=== PATIENT | female | born 1975 | race Caucasian/White ===

== ENCOUNTER → 2017-10-15 11:56 | Outpatient (CLI) | payer MEDICAID, SELFPAY ==
--- NOTE | 2017-10-15 12:02 | XR_ITS ---
XR ankle RT min 3V HISTORY: Right ankle pain following injury ITS.REASON: RT FOOT PAIN ORDERING PHYSICIAN: Denise Sparks PATIENT AGE: 42 years COMPARISON: FINDINGS: No fracture or dislocation. No lytic or blastic change. There is normal mineralization.. The joint spaces are well-preserved. No significant degenerative/arthritic changes. No erosive changes evident. IMPRESSION: Negative ankle, no acute finding
--- NOTE | 2017-10-15 12:02 | XR_ITS ---
Right Foot 3 Views HISTORY: ITS.REASON: RT FOOT PAIN ORDERING PHYSICIAN: Denise Sparks PATIENT AGE: 42 years COMPARISON: None FINDINGS: No fracture or dislocation. No lytic or blastic change. There is normal mineralization.. The joint spaces are well-preserved. No significant degenerative/arthritic changes. No erosive changes evident. 7 mm calcaneal spur is present. IMPRESSION: No acute finding
== END ==
PROVIDERS: PCP Family Medicine; Visit Provider Nurse Practitioner Family
DX: M79.671 Pain in right foot (principal)
CPT/HCPCS: 73610; 73630

== ENCOUNTER → 2020-06-23 14:44 | Outpatient (CLI) | payer OTHER, SELFPAY | PROVIDERS: Visit Provider Nurse Practitioner | DX: L60.0 Ingrowing nail (principal) | CPT/HCPCS: 87070; 87077; 87186; 87205 ==

== ENCOUNTER → 2020-07-07 10:13 | Outpatient (CLI) | payer OTHER, SELFPAY ==
[2020-07-07 11:31] LABS: Basophils # 0.1 K/mm3 (0-0.2); Eosinophils # 0.5 K/mm3 (0.0-0.4); Eosinophils % 4.5 % (0.1-12.0); Hematocrit 48.3 % (37.0-47.0); Lymphocytes # 1.7 K/mm3 (0.7-4.5); Lymphocytes % 15.8 % (10-50); Mean Corpuscular HGB Conc 33.2 g/dL (31.8-35.4); Mean Corpuscular Hemoglobin 31.4 pg (27.0-31.2); Mean Corpuscular Volume 94.8 fl (81-99); Mean Platelet Volume 8.7 fl (7.4-10.4); Monocytes # 0.5 K/mm3 (0.1-1.0); Monocytes % 4.2 % (1.7-9.3); Neutrophils % 74.5 % (37.0-80.0); Platelet Count 299 K/mm3 (142-424); Red Blood Count 5.09 M/mm3 (4.20-5.40); Red Cell Distribution Width 14.2 % (11.5-17.5); White Blood Count 10.7 K/mm3 (4.8-10.8)
[2020-07-07 11:54] LABS: Alanine Aminotransferase 44 U/L (12-78); Albumin Level 4.4 g/dl (3.5-5.0); Albumin/Globulin Ratio 1.2 (1.1-1.8); Alkaline Phosphatase 126 U/L (38-126); Anion Gap 14.4 mEq/L (5-15); Aspartate Amino Transferase 40 U/L (14-36); Bilirubin,Total 0.5 mg/dl (0.2-1.3); Blood Urea Nitrogen 6 mg/dl (7-17); Calcium 9.6 mg/dl (8.4-10.2); Carbon Dioxide 25 mmol/L (22.0-30.0); Chloride 102 mmol/L (98-107); Chol/HDL Ratio 3.6 (1-3.5); Cholesterol 161 mg/dl (140-200); Estimated Glomerular Filt Rate 108 ml/min (>60); GFR (African American) 131 ML/MIN (>60); Globulin 3.7 g/dL (1.3-3.2); Glucose 244 mg/dl (74-100); HDL Cholesterol 45 mg/dl (40-60); Potassium 4.4 mmoL/L (3.5-5.1); Sodium 137 mmol/L (136-145); Total Protein,Serum 8.1 g/dl (6.3-8.2); Triglycerides 168 mg/dl (30-150); VLDL Cholesterol 34 mg/dL (0-40)
[2020-07-07 12:05] LABS: Direct LDL Cholesterol 75.85 mg/dL (100-129)
[2020-07-07 12:27] LABS: Hemoglobin A1C 8.7 % (4.0-6.0)
== END ==
PROVIDERS: PCP Family Medicine; Visit Provider Nurse Practitioner Family
DX: Z03.818 Encounter for observation for suspected exposure to other biological agents ruled out (principal); E11.9 Type 2 diabetes mellitus without complications; Z79.84 Long term (current) use of oral hypoglycemic drugs
CPT/HCPCS: 36415; 80053; 80061; 83036; 85025; U0003

== ENCOUNTER → 2020-09-06 14:17 | Outpatient (CLI) | payer OTHER, SELFPAY ==
--- NOTE | 2020-09-06 14:17 | US_ITS ---
PROCEDURE: US TRANSVAGINAL CLINICAL INDICATION: US T/V- DUB COMPARISON: No exams were available for comparison FINDINGS: UTERUS: 9cm x 5cmx 5cm with a combined endometrial thickness of 11.4mm LEFT OVARY: [id number] with a volume of 6.3ml. RIGHT OVARY: [id number] with a volume of 8.2ml. The uterus is upper limits of normal in size in the endometrium is also upper limits of normal at 11 mm. There are small bilateral ovarian cysts with no cul-de-sac fluid apparent. IMPRESSION: Endometrial thickness upper limits of normal at 11 mm. Dictated by: Lincoln Taveras MD 09/08/2020 12:56 Lincoln Taveras MD in [place] 09/08/2020 12:56
== END ==
PROVIDERS: PCP Obstetrics & Gynecology; Visit Provider Obstetrics & Gynecology
DX: N93.8 Other specified abnormal uterine and vaginal bleeding (principal)
CPT/HCPCS: 76830

== ENCOUNTER → 2021-01-18 14:44 | Outpatient (CLI) | payer OTHER, SELFPAY ==
--- NOTE | 2021-01-18 14:47 | XR_ITS ---
PROCEDURE: XR FOOT WT BEARING RT 3V CLINICAL INDICATION: pain COMPARISON: DX [id number] XR foot RT min 3V from 10/15/2017 FINDINGS: No acute fractures or dislocations. Bone density is normal. The tarsals, metatarsals and phalanges are unremarkable. Calcaneal spur is noted. No significant soft tissue abnormality. IMPRESSION: No acute findings. Dictated by: Darcie Chandra 01/18/2021 16:22 Darcie Chandra in [place] 01/18/2021 16:22
--- NOTE | 2021-01-18 14:47 | XR_ITS ---
PROCEDURE: XR FOOT WT BEARING LT 3V CLINICAL INDICATION: pain COMPARISON: DX [id number] XR foot RT min 3V from 10/15/2017 CR XR FOOT WT BEARING RT 3V from 01/18/2021 FINDINGS: No acute fractures or dislocations. Normal mineralization is noted. The visualized tarsals, metatarsals and phalanges are unremarkable. No significant erosive changes are noted. Calcaneal spur is noted. Minor soft tissue swelling on the dorsum of the foot. IMPRESSION: No acute findings. Dictated by: Darcie Chandra 01/18/2021 16:23 Darcie Chandra in [place] 01/18/2021 16:23
== END ==
PROVIDERS: PCP Family Medicine; Visit Provider Podiatrist
DX: M79.672 Pain in left foot (principal); M79.671 Pain in right foot
CPT/HCPCS: 73630

== ENCOUNTER → 2021-03-14 15:18 | Outpatient (CLI) | payer OTHER, SELFPAY ==
--- NOTE | 2021-03-14 15:21 | XR_ITS ---
PROCEDURE: XR KNEE RT 3V CLINICAL INDICATION: RT KNEE PAIN, UNSPECIFIED CHRONICITY COMPARISON: CR KNEE3L KNEE-3 VIEWS-LT from 03/02/2015 FINDINGS: Mild osteoarthritic changes are present involving the medial compartment and patellofemoral joint with osteophytes along the medial compartment and patellofemoral joint. A 17 mm calcific density is present 3 cm cephalad to the patella Other findings:None. IMPRESSION: Osteoarthritic change. 17 mm calcific density cephalad to the patella. This may be due to a loose body in the superior suprapatellar bursa. Dictated by: Lincoln Taveras MD 03/14/2021 16:14 Lincoln Taveras MD in [place] 03/14/2021 16:14
--- NOTE | 2021-03-14 15:21 | XR_ITS ---
PROCEDURE: XR KNEE LT 3V CLINICAL INDICATION: LT KNEE PAIN, UNSPECIFIED CHRONICITY COMPARISON: CR KNEE3L KNEE-3 VIEWS-LT from 03/02/2015 FINDINGS: No fracture or dislocation. No lytic or blastic change. There is normal mineralization. There are mild osteoarthritic changes involving all 3 compartments. This has progressed since the previous exam. Other findings:None. IMPRESSION: Progression of mild osteoarthritic changes Dictated by: Lincoln Taveras MD 03/14/2021 16:30 Lincoln Taveras MD in [place] 03/14/2021 16:30
== END ==
LOC: RAD 15:18 → COVID.OUT 15:23 → RAD 15:23
PROVIDERS: PCP Family Medicine; Visit Provider Family Medicine
DX: M25.562 Pain in left knee (principal); M25.561 Pain in right knee
CPT/HCPCS: 73562

== ENCOUNTER → 2021-06-01 09:27 | Outpatient (CLI) | payer OTHER, SELFPAY ==
--- NOTE | 2021-06-01 09:30 | XR_ITS ---
PROCEDURE INFORMATION: Exam: XR Left Knee Exam date and time: 06/01/2021 9:30 AM Age: 46 years old Clinical indication: Pain; Knee; Left; Additional info: Bl knee pain TECHNIQUE: Imaging protocol: XR Left knee. Views: 4 or more views. Total images: 4 COMPARISON: CR XR KNEE LT 3V 03/14/2021 3:36 PM FINDINGS: Bones/joints: No fractures. Moderate osteoarthritic changes in the patellofemoral compartment, predominantly laterally. Mild medial joint line spurring with minimal medial compartment osteoarthritic joint space narrowing. 10 mm intra-articular ossific body versus meniscal ossicle in the posterior aspect of the lateral tibiofemoral compartment unchanged. No gross joint effusion. Soft tissues: No soft tissue abnormalities. IMPRESSION: 1. No fracture. 2. Moderate osteoarthritic changes in the patellofemoral compartment, predominantly laterally. Minor osteoarthritic joint space narrowing and marginal spurring in the medial tibiofemoral compartment. 3. 10 mm intra-articular ossific body versus meniscal ossicle in the posterior aspect of the lateral compartment.
--- NOTE | 2021-06-01 09:30 | XR_ITS ---
PROCEDURE INFORMATION: Exam: XR Right Knee Exam date and time: 06/01/2021 9:30 AM Age: 46 years old Clinical indication: Pain; Knee; Right; Additional info: Bl knee pain TECHNIQUE: Imaging protocol: XR Right knee. Views: 4 or more views. Total images: 4 COMPARISON: CR XR KNEE RT 3V 03/14/2021 3:36 PM FINDINGS: Bones/joints: No fracture. Moderate osteoarthritis in the patellofemoral compartment, predominantly laterally. Moderate osteoarthritic joint space narrowing in the lateral tibiofemoral compartment. Chronic 17 x 8 mm ossification in the anterolateral suprapatellar soft tissues adjacent to the anterior femoral margin about 3.5 cm above the patella, which is unchanged from 03/14/2021. It might represent a large intra-articular ossific body in the proximal most suprapatellar bursa as previously suggested, or possibly chronic myositis ossificans. No adjacent bony changes or soft tissue mass component is evident to suggest neoplasm, although consider nonemergent MRI assessment if the patient is focally symptomatic at this site. Soft tissues: See Bones/joints finding. IMPRESSION: 1. No acute findings. 2. Moderate osteoarthritic changes predominantly in the patellofemoral compartment and lateral compartment. 3. Unchanged 17 mm ossification about 3.5 cm proximal to the patella probably representing an ossific body in the proximal most suprapatellar bursa versus myositis ossificans. No aggressive features suggestive of neoplasm were evident although consider nonemergent MRI assessment if the patient is focally symptomatic at this site.
== END ==
PROVIDERS: PCP Family Medicine; Visit Provider Orthopaedic Surgery
DX: M25.561 Pain in right knee (principal); M25.562 Pain in left knee
CPT/HCPCS: 73564

== ENCOUNTER → 2022-07-05 14:37 | Outpatient (CLI) | payer OTHER, SELFPAY ==
--- NOTE | 2022-07-05 14:40 | XR_ITS ---
FINAL REPORT CLINICAL HISTORY: PAIN FINDINGS: LEFT SHOULDER 3 views of the left shoulder were obtained. There is no acute fracture or dislocation. The joint spaces are intact. There is no soft tissue abnormality. IMPRESSION: No acute bony abnormality. Reviewed, Interpreted and Dictated by Daniella Wilson MD Transcribed by Riddhi Ko Authenticated and . [facility]
== END ==
PROVIDERS: PCP Physician Assistant; Visit Provider Physician Assistant
DX: M25.512 Pain in left shoulder (principal)
CPT/HCPCS: 73030

== ENCOUNTER → 2022-07-19 14:14 | Outpatient (CLI) | payer OTHER, SELFPAY ==
--- NOTE | 2022-07-19 14:19 | MR_ITS ---
FINAL REPORT TECHNIQUE: Multiplanar and multisequence imaging of the shoulder was obtained without contrast. CLINICAL HISTORY: LEFT SHOULDER PAIN, UNSPECIFIED CHRONICITY FINDINGS: Bones/Joint: Bone marrow signal intensity is normal. There is no fracture, edema, or pathologic marrow replacement. There is mild AC joint degenerative disease. Rotator Cuff: There is no full thickness rotator cuff tear. There is no fatty atrophy of the rotator cuff musculature. Labrum: No labral tear is identified. The biceps labral complex is intact. There is edema in the axillary recess with thickening of the inferior glenohumeral ligament most consistent with adhesive capsulitis. Other: The more distal biceps tendon is located within the bicipital groove. There is no joint effusion. Remaining soft tissues are within normal limits. IMPRESSION: Mild AC joint degenerative disease. Findings most consistent with adhesive capsulitis. Reviewed, Interpreted and Dictated by Ruthie Mccullough MD Transcribed by Denise Cr Authenticated and [facility]
== END ==
PROVIDERS: PCP Family Medicine; Visit Provider Physician Assistant
DX: M25.512 Pain in left shoulder (principal)
CPT/HCPCS: 73221

== ENCOUNTER 2022-09-06 14:00 | Outpatient (RCR) | payer OTHER, SELFPAY ==
--- NOTE | 2022-07-25 14:48 | HMH.OTOPEV ---
OT Inpatient Evaluation Rehab OT Outpatient Eval Start: 07/25/22 14:25 Freq: Status: Active Protocol: Document 07/25/22 14:25 KATALINA (Rec: 07/25/22 14:48 [id number] E-signed By Mario Alberto Santos, OT Outpatient Therapy Subjective History Subjective History Pt was seen this date for an initial therapy evaluation due to L shoulder pain. Pt reports she injured L shoulder ~ 6 months ago when reaching back to grab a purse in the car. Pt reports that she has had an MRI at 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 She reports that she has an appointment set for 08/04/22 to see the ortho regarding L UE. Pt reports that her pain intermittent based on the activity she is performing. She reports that this injury has affected all ADLs and IADLs. Pt does demonstrate with significant decline in AROM and strength at L shoulder. Chief Complaint Pain,Stiff,Weakness Symptom Type Throb Symptoms Relieved By Nothing Symptoms Aggravated By Physical Activity,Lifting Prior Functional Limitations None Current Functional Limitations Reaching,Lifting,Housework, Dressing,Driving,Sleeping Symptom Description Intermittent,Activity Dependent Level of pain today (0-10) 1 Pain scale - at its best (0-10) 0 Pain scale - at its worst (0-10) 8 Shoulder/Elbow Eval Shoulder Objective Measurements Shoulder ROM Left Shoulder ROM Limitations Muscle Weakness,Pain Shoulder Abduction Active Range of 92 Motion (degrees) Shoulder Flexion Active Range of Motion 105 (degrees) Query Text: Shoulder External Rotation Active Range 50 of Motion (degrees) Shoulder Internal Rotation Active Range 25 of Motion (degrees) pain with active ROM shoulder exam left standard pain with passive ROM shoulder exam left standard decr
== END 2022-09-06 15:10 | disposition home or self-care (01) ==
LOC: OT 14:00
PROVIDERS: PCP Family Medicine; Visit Provider Physician Assistant
DX: M75.02 Adhesive capsulitis of left shoulder (principal)
CPT/HCPCS: 97010; 97014; 97110; 97140; 97164; 97166; 97530; G0283

== ENCOUNTER → 2023-05-09 12:04 | Outpatient (CLI) | payer OTHER, SELFPAY ==
[2023-05-09 12:10] LABS: Coronavirus 19, PCR Not Detected (NotDetected); Influenza A, PCR Not Detected (NotDetected); Influenza B, PCR Not Detected (NotDetected)
== END ==
PROVIDERS: PCP Family Medicine; Visit Provider Family Medicine
DX: Z20.822 Contact with and (suspected) exposure to COVID-19 (principal)
CPT/HCPCS: 87636

== ENCOUNTER 2024-12-01 11:55 | Outpatient (CLI) | payer OTHER, SELFPAY ==
--- NOTE | 2024-12-01 11:59 | XR_ITS ---
FINAL REPORT CLINICAL HISTORY: PAIN OF LT HEEL COMPARISON: 01/18/2021 FINDINGS: AP, oblique and lateral views of the left foot were obtained. There is no acute fracture or dislocation. Multijoint degenerative changes present, particularly in the midfoot. An inferior calcaneal spur is noted, similar to the prior exam. Soft tissues are unremarkable. IMPRESSION: Multijoint degenerative change, particularly in the midfoot. Plantar calcaneal spur, similar to the prior exam. Reviewed, Interpreted and Dictated by Ruthie Mccullough MD Transcribed by Radha Morgan Authenticated and [facility]
== END 2024-12-01 23:59 | disposition home or self-care (01) ==
LOC: RAD 11:56
PROVIDERS: PCP Family Medicine; Visit Provider Family Medicine
DX: M15.9 Polyosteoarthritis, unspecified (principal); M77.32 Calcaneal spur, left foot
CPT/HCPCS: 73630

== ENCOUNTER 2025-02-10 10:45 | Outpatient (CLI) | payer OTHER, SELFPAY ==
--- NOTE | 2025-02-10 10:48 | MM_ITS ---
PROCEDURE INFORMATION: Exam: MG Bilateral Screening 3D Mammography Exam date and time: 02/10/2025 10:50 AM Age: 50 years old Clinical indication: Screening examination TECHNIQUE: Imaging protocol: Bilateral Screening tomosynthesis and 2D mammography including computer-aided detection (CAD) when performed. COMPARISON: No relevant prior studies available. FINDINGS: MAMMOGRAPHY: Breast composition: There are scattered areas of fibroglandular density. Mass: None. Architectural distortion: None. Calcifications: No suspicious calcifications. Asymmetric density: None. Skin thickening: None. Axillary adenopathy: None. IMPRESSION: No mammographic evidence of malignancy. Annual screening is recommended unless otherwise clinically indicated. ASSESSMENT: BI-RADS Category 1: Negative.
== END 2025-02-10 23:59 | disposition home or self-care (01) ==
LOC: RAD 10:46
PROVIDERS: PCP Family Medicine; Visit Provider Family Medicine
DX: Z12.31 Encounter for screening mammogram for malignant neoplasm of breast (principal); R92.323 Mammographic fibroglandular density, bilateral breasts
CPT/HCPCS: 77063; 77067

== ENCOUNTER 2025-05-26 10:00 | Outpatient (RCR) | payer OTHER, SELFPAY ==
--- NOTE | 2025-05-07 07:51 | HMH.PTOPEV ---
PT Evaluation Rehab PT Outpatient Evaluation Start: 05/06/25 13:00 Freq: Status: Active Protocol: Document 05/06/25 13:00 NIMA (Rec: 05/06/25 14:22 NIMA [id number]) E-signed By Rosey Monique, PT Outpatient Therapy Subjective History Subjective History This is an initial PT evaluation for 50 y/o Arlene Cole who presents to PT with referral for ankle instability and plantar fasciitis. Pt is currently under the care of podiatry for these pain complaints. Pt reports both feet and ankles hurt and have been causing her pain for ~11 years. Pt reports having bone spurs, PF, ankle sprains, muscle and tendon damage, neuropathy, and osteoarthritis. Pt reports being on her feet aggravates her pain the most. Pt reports most of her pain is in the top part of her feet. Pt reports nothing relieves her pain though she does try Tylenol when pain is increased. Pt reports hx of multiple ankle sprains. Pt denies any recent injury but rather her pain insidiously increasing overtime. Pt does have constant numbness and tingling in her feet. Pt reports he has tried prescribed stretches and tennis ball massage with no relief. Pt reports these exercises increase her pain. Pt presents with bilateral ankle stability braces with B insoles inserts. PMH: diabetic neuropathy, asthma, hypothyroidism, anxiety, BLE edema. Imagin11/2024 Multijoint degenerative change, particularly in the midfoot. Plantar calcaneal spur, similar to the prior exam. Pt reports she has not had any recent MRI imaging. New diagnosis of No cancer in past 12 months? Chief Complaint Pain Symptom Type Ache,Sharp Symptoms Relieved By Nothing Symptoms Aggravated Standing,Physical Activity,Walking By Prior Functional None Limitations Current Functional Walking,Stairs,Balance Limitations Symptom Description Constant but Variable Level of pain today 5 (0-10) Pain scale - at its 2 best (0-10) Pain scale - at its 8 worst (0-10) Ankle/Foot Eval Gait Observation General Gait Pattern Antalgic Gait Observation Assistive Device Ambulation Assistive None Device Palpation Tenderness bilateral Ankle/Foot Palpation Tenderness,Muscle Guarding Findings Ankle/Foot Palpation 2-3/4 TTP multiple places bilaterally Overall Comment ATF TTP positive PTF TTP positive CF TTP positive Deltoid ligament TTP positive ROM right Ankle/Foot 0 Dorsiflexion w/Knee Flexed Active Range of Motion (degrees) Ankle/Foot Plantar 40 Flexion Active Range of Motion (degrees) Ankle/Foot Eversion 10 Active Range of Motion (degrees) Ankle/Foot Inversion 10 Active Range of Motion (degrees) Ankle/Foot ROM Pain Limitations left Ankle/Foot 0 Dorsiflexion w/Knee Flexed Active Range of Motion (degrees) Ankle/Foot Plantar 40 Flexion Active Range of Motion (degrees) Ankle/Foot Eversion 15 Active Range of Motion (degrees) Ankle/Foot Inversion 10 Active Range of Motion (degrees) Ankle/Foot ROM Pain Limitations MMT bilateral Ankle Dorsiflexion 3 Fair Strength Grade Ankle Plantarflexion 3 Fair Strength Grade Foot Eversion 3 Fair Strength Grade Foot Inversion 3 Fair Strength Grade Special Tests Ankle Anterior Positive Left,Positive Right Drawer Test Ankle Eversion Test Positive Left,Positive Right Talar Tilt Test Positive Left,Positive Right Ankle Posterior Positive Left,Positive Right Drawer Test Lower Extremity Functional Index Activities Today, do you or would you have any difficulty at all with: a.Any of your usual Quite a bit of difficulty work, housework or school activities b. Your usual A little bit of difficulty hobbies, recreational or sporting activities c. Getting into or No difficulty out of the bath d. Walking between A little bit of difficulty rooms e. Putting on your Moderate difficulty shoes or socks f. Squatting A little bit of difficulty g. Lifting an object No difficulty , like a bag of groceries from the floor h. Performing light No difficulty activities around your home i. Performing heavy No difficulty activities around your home j. Getting into or No difficulty out of a car k. Walking 2 blocks Extreme difficulty or unable to perform activity l. Walking a mile Extreme difficulty or unable to perform activity m. Going up or down Extreme difficulty or unable to perform activity 10 stairs (about 1 flight of stairs) n. Standing for 1 Extreme difficulty or unable to perform activity hour o. Sitting for 1 Moderate difficulty hour p. Running on even Extreme difficulty or unable to perform activity ground q. Running on uneven Extreme difficulty or unable to perform activity ground r. Making sharp Extreme difficulty or unable to perform activity turns while running fast s. Hopping Extreme difficulty or unable to perform activity t. Rolling over in No difficulty bed LEFI Score Lower Extremity 38 Functional Index Score Outpatient Therapy Assessment Impairments Problems/ Impaired Range of Motion,Impaired Strength,Impaired Impairmments Endurance,Impaired Transfers,Impaired Gait Pattern, Impaired Walking,Impaired Standing,Impaired Recreational Activities,Impaired Balance,Subjective C/O Pain,Impaired Self Care/Self Management Prognosis Rehab Potential Good Comment Pt presents with chronic bilateral ankle and foot pain. Pt sensitive to all special tests and demo'd 2-3 TTP multiple locations on B feet/ankles. PT with difficulty interpreting special test results d/t hypersensitivity to all tests performed. Pt would benefit from skilled OP PT to address deficits and decrease chronic pain. *Therapist to provide HEP at initial session to focus on ankle strength and ankle/foot AROM* Clinical Impression Consistent with Yes Diagnosis PT Patient Goals PT Patient Goals PT Short Term In 4 weeks, pt will: Patient Goals 1) Verbalize compliance with a home exercise program to improve self-maintenance of symptoms. 2) Verbalize 48-hour pain average (worst/best/current) of 5/10. 3) Improve ankle strength by 1/5 MMT grade globally to improve daily functioning. 4) Tolerate one 10 min moderate intensity endurance task (ex: bike). 5) Improve LEFS to 40/80 to improve LE functioning. 6) Verbalize feeling at least 35% improved in symptoms since initial PT evaluation. 7) Improve Ankle AROM by 5 degrees in each effected plane to improve functional ROM for daily tasks like dressing, reaching, picking up objects, and driving. PT Snf Patient In 8 weeks, pt will: Goals 1) Verbalize adherence with home exercise program to maximize self-maintenance of symptoms upon d/c from PT POC. 2) Verbalize 48-hour pain average (worst/best/current) of 2/10 3) Improve ankle strength to 5/5 MMT grade globally to improve daily functioning. 4) Improve LEFS to 50/80 to improve LE functioning. 5) Improve Ankle AROM to WFL to improve functional ROM for daily tasks like dressing, reaching, picking up objects, and driving. 6) Verbalize feeling at least 80% improved in symptoms since initial PT evaluation. Outpatient Therapy Plan of Care Treatment Plan May Include Therapeutic Exercise Yes Including Home Exercise Program Manual Therapy Yes Techniques Neuromuscular Re- Yes education Therapeutic Yes Activities to Return to Previous Functional/Work Level Gait Training Yes ADL/Self Care Yes Education Dry Needling Yes Thermal Modalities Yes Electrical Yes Stimulation Ultrasound/ Yes Phonophoresis Iontophoresis Yes Parrafin Yes Orthotics/Bracing/ Yes Splinting Vasopneumatic Yes Compression Pump Massage Yes Manual Lymphatic Yes Drainage Eval/Re-Eval Yes Frequency Times per week 2x weekly Duration Number of Weeks 6-8 weeks Addendums This patient is a No candidate for social or vocational rehab ? Patient/Guardian Yes verbally acknowledges understanding of treatment program and consents to further treatment? Patient/Guardian Yes verbally acknowledges understanding of diagnosis, prognosis and goals for treatment? Eval Complexity PT Charges 60075 - Moderate Complexity Shoulder/Elbow Eval Shoulder Objective Measurements Elbow Objective Measurements PHYSICIAN CERTIFICATION: I certify the specified therapy services for Arlene Cole are required, authorized, and reviewed every 30 days.
== END 2025-05-26 23:59 | disposition home or self-care (01) ==
LOC: PT 10:00
PROVIDERS: PCP Family Medicine; Visit Provider Nurse Practitioner
DX: M72.2 Plantar fascial fibromatosis (principal); M25.371 Other instability, right ankle; M25.372 Other instability, left ankle; M77.41 Metatarsalgia, right foot; M77.42 Metatarsalgia, left foot; Z87.828 Personal history of other (healed) physical injury and trauma
CPT/HCPCS: 97110; 97162